=== PATIENT | female | born 1945 | race Caucasian/White ===

== ENCOUNTER 2017-10-24 08:37 | Emergency (ER) | payer MEDICARE, OTHER ==
[~2017-10-24] VITALS: Ht 170.2 cm; Wt 70.0 kg
[~2017-10-24 08:37] MED LIST: CEPH500 PO; LORTA5 PO; SULF1TAB47 PO; Z.0.NO CURRENT MEDS
[2017-10-24 08:40] VITALS: BP 186/81; PULSE 84; RESP 18; TEMP 97.7; O2SAT 88
[2017-10-24 08:57] VITALS: BP 185/90; PULSE 86; RESP 17; O2SAT 90
[2017-10-24] MEDS ORDERED: NYST15T TOPICAL (09:45)
--- NOTE | 2017-10-24 09:45 | PD ---
HPI Chief Complaint: Skin Problem Time Seen by Provider: 09:31 Travel History International Travel<30 days: No Contact w/Intl Traveler<30days: No Traveled to known affect area: No History of Present Illness HPI This is a 71-year-old female who presents to the emergency department with an itchy rash below both of her breasts, constant, moderate severity that's been going on for 2 weeks and is not improving despite [id number] agents. She says she has not been on any recent antibiotics. She says it started under her right breast and it spread to the left. She did have a big fall in July and since then has been seeing a pulmonary doctor because she's been having chronic hypoxia. She has oxygen at home but doesn't always use it. PFSH Past Medical History Musculoskeletal: Yes (FRACTURED RIBS) Respiratory: Yes (PNEUMOTHORAX) Influenza Vaccination: Yes ?: Not Past Surgical History Other Surgery: Yes (SPLEENECTOMY) Social History Alcohol Use: Yes Tobacco Use: Yes Substance Use: No Allergies-Medications (Allergen,Severity, Reaction): Coded Allergies: No Known Allergies (Unverified Adverse Reaction, Unknown, 10/24/17) Reported Meds & Prescriptions Reported Meds & Active Scripts Active No Active Prescriptions or Reported Medications Review of Systems General / Constitutional: No: Fever, Chills Cardiovascular: No: Chest Pain or Discomfort Respiratory: No: Shortness of Breath Physical Exam Narrative GENERAL: Well-appearing, no acute distress, nontoxic SKIN: Erythematous rash below both breasts with satellite papules and some peripheral scaling HEAD: Atraumatic. Normocephalic. ENT: No nasal bleeding or discharge. Moist mucous membranes MUSCULOSKELETAL: No obvious deformities. No clubbing. No cyanosis. No edema. NEUROLOGICAL: Awake and alert. No obvious cranial nerve deficits. Motor grossly within normal limits. Normal speech. PSYCHIATRIC: Appropriate mood and affect; insight and judgment normal. Data Data Last Documented VS Vital Signs Date Time Temp Pulse Resp B/P (MAP) Pulse Ox O2 Delivery O2 Flow Rate FiO2 10/24/17 08:57 17 10/24/17 08:57 86 185/90 (121) 90 10/24/17 08:40 97.7 MDM Medical Decision Making Medical Screen Exam Complete: Yes Emergency Medical Condition: Yes Differential Diagnosis [place], atopic dermatitis, irritant dermatitis, contact dermatitis Narrative Course This is a 71-year-old female who presents to the emergency department with a rash below both of her breasts that appears to be Candidal intertrigo. She does have some hypoxia but this is chronic for her and she has oxygen at home. Patient will be discharged with nystatin cream and was instructed not to wear occlusive clothing. She'll follow-up with her primary care physician in one week to see if symptoms improved. Diagnosis Primary Impression: Candidal intertrigo Patient Instructions: General Instructions Additional Instructions: If you develop increasing redness, pain, fever, or chills return to the emergency room. Follow-up with her primary care physician in one week if your symptoms don't improve. Apply your nystatin cream 3 times a day. Med/Other Pt SpecificInfo: Prescription(s) given Scripts Nystatin Topical (Nystatin Topical) 100,000 unit/gm Cream 1 APPLIC TOPICAL TID for Infection, #30 GM 0 Refills Prov: Mari Arroyo MD 10/24/17 Disposition: 01 DISCHARGE HOME Condition: Stable Mari Arroyo MD Oct 24, 2017 09:45
== END 2017-10-24 09:54 | disposition home or self-care (01) ==
LOC: PHED 08:37
DX: L30.4 Erythema intertrigo (principal); B37.2 Candidiasis of skin and nail
CPT/HCPCS: 99283